=== PATIENT | male | born 1950 | race Caucasian/White ===

== ENCOUNTER 2016-11-29 09:53 | Emergency (ER) | payer OTHER ==
[~2016-11-29] VITALS: Ht 180.3 cm; Wt 136.0 kg
[2016-11-29 09:59] VITALS: BP 141/77; PULSE 60; RESP 16; TEMP 97.7; O2SAT 98
[2016-11-29] MEDS ORDERED: ATEN25TA PO (10:27)
[2016-11-29] MEDS ORDERED: ASPI1TAB69 PO (10:27)
[2016-11-29] MEDS ORDERED: LORazepam 2 MG/ML VIAL IV PUSH ONE (10:30)
[2016-11-29] MEDS ORDERED: SODIUM CHLORIDE 0.9% FLUSH 5 ML FLUSH IVF PRN (10:30)
[2016-11-29 10:31] VITALS: RESP 16; O2SAT 98
[2016-11-29 10:46] LABS: AUTOMATED NEUTROPHIL # 2.9 TH/MM3 (1.8-7.7); BASOPHIL # 0.1 TH/MM3 (0-0.2); BASOPHIL % 1.1 % (0.0-2.0); EOSINOPHIL # 0.3 TH/MM3 (0-0.4); EOSINOPHIL % 5.1 % (0.0-4.0); HEMATOCRIT 40.8 % (39.0-51.0); HEMO FLAGS DIFF FINAL; LYMPH % 23.5 % (9.0-44.0); LYMPHOCYTE # 1.2 TH/MM3 (1.0-4.8); MEAN CELL VOLUME 83.7 FL (80.0-100.0); MEAN CORPUSCULAR HEMOGLOBIN 28.1 PG (27.0-34.0); MEAN CORPUSCULAR HGB CONC 33.5 % (32.0-36.0); MONO % 9.1 % (0.0-8.0); NEUT % 61.2 % (16.0-70.0); PLATELET COUNT 207 TH/MM3 (150-450); RED BLOOD COUNT 4.88 MIL/MM3 (4.50-5.90); RED CELL DISTRIBUTION WIDTH 13.1 % (11.6-17.2)
[2016-11-29 10:55] LABS: POTASSIUM 4.4 MEQ/L (3.5-5.1)
[2016-11-29 10:58] LABS: BICARBONATE 28.6 MEQ/L (21.0-32.0)
--- NOTE | 2016-11-29 11:00 | PD ---
HPI Chief Complaint: Dizziness Time Seen by Provider: 10:07 Travel History International Travel<30 days: No Contact w/Intl Traveler<30days: No Traveled to known affect area: No History of Present Illness HPI Patient is a 66-year-old male with history of HTN, DM, morbid obesity 18 days status post bariatric surgery, gastric sleeve here with complaint of vertigo. Patient traveled by car from [place] to [place] 2 days ago. Yesterday he noticed a slight amount of vertigo, describes this is like he is on a carnival ride, with slight amount of nausea. He has not had any tinnitus, changes in his hearing. No abdominal pain, vomiting. He has been passing flatus without any difficulty since surgery. He has been on a liquid diet since surgery without any difficulty. He denies any other neurologic deficit, numbness, tingling, weakness. He has been able to ambulate without difficulty but states that he feels like he's had alcoholic beverages when he walks, but has not been drinking. Denies history of CVA or TIA. PFSH Past Medical History Hx Anticoagulant Therapy: Yes (BABY ASA DAILY) Cardiovascular Problems: Yes (HTN) Diabetes: Yes Patient Takes Glucophage: No Diminished Hearing: No Hypertension: Yes Kidney Stones: Yes Tetanus Vaccination: < 5 Years Influenza Vaccination: Yes Past Surgical History Abdominal Surgery: Yes (gastric sleeve) Social History Alcohol Use: No Tobacco Use: No Substance Use: No Allergies-Medications (Allergen,Severity, Reaction): Coded Allergies: Altace (Verified Allergy, Severe, anaphylaxis, 11/29/16) Toprol Xl (Verified Allergy, Severe, anaphylaxis, 11/29/16) Reported Meds & Prescriptions Reported Meds & Active Scripts Active Reported Aspirin 81 Mg Tabdr 81 Mg PO DAILY Atenolol 25 Mg Tab 25 Mg PO DAILY Review of Systems Except as stated in HPI: all other systems reviewed are Neg Physical Exam Narrative GENERAL: Elderly male in no acute distress SKIN: Warm and dry. HEAD: Normocephalic. EYES: No scleral icterus. No injection or drainage. ENT: Left TM unremarkable. Right ear with cerumen impaction, removed, please see procedure note. Right TM clear. No nasal bleeding or discharge. Mucous membranes pink and moist. NECK: Supple without nuchal rigidity or bruit CARDIOVASCULAR: Regular rate and rhythm. No murmur appreciated. RESPIRATORY: No accessory muscle use. Clear to auscultation. Breath sounds equal bilaterally. GASTROINTESTINAL: Abdomen soft, non-tender, nondistended. Morbidly obese. Surgical scar is well healing. MUSCULOSKELETAL: Moves all extremity's normally. Bilateral lower extremity 1+ edema NEUROLOGICAL: Awake and alert. No obvious cranial nerve deficits. EOMI. No nystagmus. Grossly within normal limits. Normal speech. PSYCHIATRIC: Appropriate mood and affect; insight and judgment normal. Data Data Last Documented VS Vital Signs Date Time Temp Pulse Resp B/P Pulse Ox O2 Delivery O2 Flow Rate FiO2 11/29/16 11:23 52 16 132/71 98 Room Air 11/29/16 09:59 97.7 Orders Electrocardiogram (11/29/16 ) Mri Brain W/O Contrast (11/29/16 ) Complete Blood Count With Diff (11/29/16 10:24) Basic Metabolic Panel (Bmp) (11/29/16 10:24) Ecg Monitoring (11/29/16 10:24) Iv Access Insert/Monitor (11/29/16 10:24) Oximetry (11/29/16 10:24) Sodium Chloride 0.9% Flush (Ns Flush) (11/29/16 10:30) Lorazepam Inj (Ativan Inj) (11/29/16 10:30) Labs Laboratory Tests Test 11/29/16 10:38 White Blood Count 5.0 TH/MM3 Red Blood Count 4.88 MIL/MM3 Hemoglobin 13.7 GM/DL Hematocrit 40.8 % Mean Corpuscular Volume 83.7 FL Mean Corpuscular Hemoglobin 28.1 PG Mean Corpuscular Hemoglobin 33.5 % Concent Red Cell Distribution Width 13.1 % Platelet Count 207 TH/MM3 Mean Platelet Volume 8.9 FL Neutrophils (%) (Auto) 61.2 % Lymphocytes (%) (Auto) 23.5 % Monocytes (%) (Auto) 9.1 % Eosinophils (%) (Auto) 5.1 % Basophils (%) (Auto) 1.1 % Neutrophils # (Auto) 2.9 TH/MM3 Lymphocytes # (Auto) 1.2 TH/MM3 Monocytes # (Auto) 0.5 TH/MM3 Eosinophils # (Auto) 0.3 TH/MM3 Basophils # (Auto) 0.1 TH/MM3 CBC Comment DIFF FINAL Differential Comment Sodium Level 141 MEQ/L Potassium Level 4.4 MEQ/L Chloride Level 104 MEQ/L Carbon Dioxide Level 28.6 MEQ/L Anion Gap 8 MEQ/L Blood Urea Nitrogen 14 MG/DL Creatinine 1.10 MG/DL Estimat Glomerular Filtration 67 ML/MIN Rate Random Glucose 107 MG/DL Calcium Level 9.2 MG/DL [facility] Medical Decision Making Medical Screen Exam Complete: Yes Emergency Medical Condition: Yes Medical Record Reviewed: Yes Differential Diagnosis 66-year-old male with history of HTN, DM, 18 days status post gastric sleeve surgery here with complaint of 2 days of vertigo and mild nausea. Differential includes central versus peripheral vertigo including BPPV, Mnire's, labyrinthitis, posterior circulation CVA or mass lesion, vertebrobasilar insufficiency, and less likely electrolyte abnormality. Narrative Course Patient placed on monitor, IV established and blood obtained. Twelve-lead EKG shows sinus bradycardia, rate [address] abnormalities, normal intervals. Patient was given Ativan for premedication for MRI. CBC, BMP obtained and unremarkable. MRI of the brain showed no acute abnormalities. Patient able to ambulate without any difficulties. Will be given meclizine for home. Procedures Procedure Narrative Right ear cerumen impaction removed with loop ear curet without any difficulty. Diagnosis Primary Impression: Peripheral vertigo Qualified Code: H81.399 - Peripheral vertigo, unspecified laterality Additional Impression: Impacted cerumen of right ear Referrals: Primary Care Physician as needed Additional Instructions: Meclizine as needed for vertigo. Return to the ER for the warning signs discussed. Med/Other Pt SpecificInfo: Prescription(s) given Scripts Meclizine 25 Mg Tab25 Mg PO TID PRN (VERTIGO) #30 TAB Ref 0 Prov:Arielle Howell MD 11/29/16 Disposition: 01 DISCHARGE HOME Condition: Stable Arielle Howell MD Nov 29, 2016 11:00
[2016-11-29 11:23] VITALS: BP 132/71; PULSE 52; RESP 16; O2SAT 98
--- NOTE | 2016-11-29 12:24 | RADHPO ---
EXAM DATE/TIME: 11/29/2016 12:15 [facility] COMPARISON: No previous studies available for comparison. INDICATIONS : Vertigo. MEDICAL HISTORY : None. SURGICAL HISTORY : Gastric sleeve ENCOUNTER: Initial ACUITY: 1 day PAIN SCORE: 0/10 LOCATION: cranial TECHNIQUE: Multiplanar, multisequence MRI of the brain was performed without contrast. FINDINGS: CEREBRUM: The ventricles are normal for age. No evidence of midline shift, mass lesion, hemorrhage or acute in farction. No extraaxial fluid collections are seen. The pituitary gland and suprasellar cistern are normal in configuration. WHITE MATTER: A few subcentimeter foci of flair signal abnormality seen of the posterior bral hemispheres. POSTERIOR FOSSA: The cerebellum and brainstem are intact. The 4th ventricle is midline. The cerebellopontine angle is unremarkable. The cerebellar tonsils are normal in position. DIFFUSION IMAGING: No focal areas of restricted diffusion are seen. No evidence of acute infarction. EXTRACRANIAL: The visualized portions of the orbits and paranasal sinuses are unremarkable. CONCLUSION: No acute intracranial abnormality. Minimal chronic white matter changes. Angelo Luque MD on November 29, 2016 at 12:22 Board Certified Radiologist. This report was verified electronically.
[2016-11-29] MEDS ORDERED: MECL-62 PO (12:25)
[2016-11-29 12:47] VITALS: BP 128/70; PULSE 54; RESP 16; O2SAT 96
--- NOTE | 2016-11-30 14:24 | EKG ---
Date Performed: 11/29/2016 Time Performed: 10:16:42 PTAGE: 66 years EKG: Sinus bradycardia ST changes most compatible with early repolarization Normal ECG except fo r rate NO PREVIOUS TRACING DOCTOR: Iglesia Fenton Interpretating Date/Time 11/30/2016 14:52:53
== END 2016-11-29 12:51 | disposition home or self-care (01) ==
LOC: PHED 10:52
DX: H81.399 Other peripheral vertigo, unspecified ear (principal); H61.21 Impacted cerumen, right ear; I10 Essential (primary) hypertension; Z98.84 Bariatric surgery status; Z79.82 Long term (current) use of aspirin
CPT/HCPCS: 69210; 70551; 80048; 85025; 93005; 96374; 99284; J2060